=== PATIENT | female | born 1940 | race Caucasian/White ===

== ENCOUNTER 2023-09-08 07:43 | Outpatient (RCR) | payer MEDICARE, OTHER, SELFPAY | END 2023-09-09 07:33 | disposition home or self-care (01) | LOC: RPT 07:43 | PROVIDERS: ATTENDING PHYSICIAN Orthopaedic Surgery; FAMILY PHYSICIAN Physician Assistant | DX: M54.50 Low back pain, unspecified (principal); Z73.6 Limitation of activities due to disability | CPT/HCPCS: 97110; 97162 ==

== ENCOUNTER → 2024-05-04 13:08 | Outpatient (REF) | payer MEDICARE, OTHER, SELFPAY | LOC: PAVMRI 13:08 | PROVIDERS: ATTENDING PHYSICIAN Nurse Practitioner Adult Health; FAMILY PHYSICIAN Physician Assistant | DX: D43.2 Neoplasm of uncertain behavior of brain, unspecified (principal) | CPT/HCPCS: 70553; A9575 ==